=== PATIENT | female | born 1955 | race Caucasian/White ===

== ENCOUNTER → 2017-03-02 | Day surgery (SDC) | payer MEDICARE ==
[~2017-03-02] VITALS: Ht 152.4 cm; Wt 53.0 kg
[~2017-03-02] MED LIST: *MEPERIDINE 25 MG INJ VIAL PERIprocedural Use ONLY ONE; *ONDANSETRON 4 MG VIAL PERIprocedural Use ONLY ONE; *RESP: ALBUTEROL 2.5 MG/3 ML NEB (PRN) PERIprocedural Use ONLY NEB ONE; *morphine SULFATE 8 MG/ML PERIprocedure ONLY ONE; ALPR0.25 PO; BUPIVACAINE/EPINEPHRINE 0.5% PF 30 ML VIAL ONE; CHLORHEXIDINE GLUCONATE 2 % 1 PACK (2 CLOTHS) TOPICAL PRN; CLOPIDOGREL 75 MG TAB PO ONE; CLOPIDOGREL 75 MG TAB PO SCH; DO NOT ADM ANY ANTICOAGULANT DRUGS PRN; FAMOTIDINE 20 MG/2 ML VIAL ONE; HEPARIN SODIUM - IV 10,000 UNITS/10 ML VIAL ONE; INSULIN HUMAN REGULAR 1,000 UNITS/10 ML VIAL SQ PRN; IOHEXOL 300 MG/ML 50 ML BTL (for RAD DIAG) OTHER ONE; LACTATED RINGER'S 1000 ML IV PRN; LEVO50TA4 PO; METOPROLOL TARTRATE 25 MG TAB PO PRN; MIDAZOLAM HCL 2 MG/2 ML VIAL IV ONE; MIDAZOLAM HCL 2 MG/2 ML VIAL ONE; MIRT45TA PO; MONT10TA4 PO; NEOSTIGMINE 3 MG/3 ML SYR IV ONE; ONDANSETRON HCL 4 MG/2 ML VIAL IV PUSH ONE; PHENYLEPH/NS 1000 MCG/10 ML SYR IV ONE; POVIDONE IODINE 5% (ANTISEPSIS KIT) 4 APPLICATIONS EACH NARE PRN; PROPOFOL 200 MG/20 ML AMP IV ONE; SODIUM CHLORID 0.9% 500 ML IV PRN; TRAM50TA PO
[2017-03-02 10:33] VITALS: BP 106/79; PULSE 87; RESP 18; TEMP 97.9; O2SAT 96
[2017-03-02 10:53] LABS: AUTOMATED NEUTROPHIL # 5.5 TH/MM3 (1.8-7.7); BASOPHIL % 0.5 % (0.0-2.0); EOSINOPHIL # 0.1 TH/MM3 (0-0.4); EOSINOPHIL % 0.9 % (0.0-4.0); HEMATOCRIT 46.1 % (35.0-46.0); HEMO FLAGS DIFF FINAL; LYMPH % 29.5 % (9.0-44.0); LYMPHOCYTE # 2.6 TH/MM3 (1.0-4.8); MEAN CELL VOLUME 95.8 FL (80.0-100.0); MEAN CORPUSCULAR HEMOGLOBIN 32.2 PG (27.0-34.0); MEAN CORPUSCULAR HGB CONC 33.6 % (32.0-36.0); MONO % 7.1 % (0.0-8.0); PLATELET COUNT 219 TH/MM3 (150-450); RED BLOOD COUNT 4.81 MIL/MM3 (4.00-5.30); RED CELL DISTRIBUTION WIDTH 14.9 % (11.6-17.2); WHITE BLOOD COUNT 8.9 TH/MM3 (4.0-11.0)
--- NOTE | 2017-03-02 11:14 | PD.VS.PN ---
Pre-operative Note Pre-operative diagnosis: PAD, L LE pain Planned procedure: L LE angiogram, iliac angiogram, possible CONTINUOUS IMPROVEMENT BLACK BELT/stent Interval History: The patient is anxious about surgery but otherwise ready to proceed. Persistent L thigh pain. Labs: Laboratory Results Test 03/02/17 10:28 White Blood Count 8.9 TH/MM3 (4.0-11.0) Red Blood Count 4.81 MIL/MM3 (4.00-5.30) Hemoglobin 15.5 GM/DL (11.6-15.3) Hematocrit 46.1 % (35.0-46.0) Mean Corpuscular Volume 95.8 FL (80.0-100.0) Mean Corpuscular Hemoglobin 32.2 PG (27.0-34.0) Mean Corpuscular Hemoglobin 33.6 % Concent (32.0-36.0) Red Cell Distribution Width 14.9 % (11.6-17.2) Platelet Count 219 TH/MM3 (150-450) Mean Platelet Volume 8.0 FL (7.0-11.0) Blood: none needed Imaging: will make in OR Orders: DONOVAN Robertson 1g IV OCTOR Post-operative destination: PACU, then home today Operative site marked: Yes Consent: Informed consent has been obtained from Tiffanie Martinez. I have explained the procedure in detail and discussed the risks, benefits, and potential complications. All questions have been answered. No interval change that would preclude proceeding to OR. Moi Arora MD March 02, 2017 11:13
[2017-03-02 11:39] LABS: BICARBONATE 24.6 MEQ/L (21.0-32.0)
[2017-03-02 11:40] LABS: POTASSIUM 4.3 MEQ/L (3.5-5.1)
--- NOTE | 2017-03-02 13:22 | HHI.PR ---
Immediate Post Op Note Procedure Date: March 02, 2017 Pre Op Diagnosis: PAD, L LE Post Op Diagnosis: PAD, L LE Surgeon: Moi Arora Retail Loan Officer(s): Ishmael Wheeler Procedure: 1. U/S guided access to L CHILD ADVOCATE 2. Aortogram 3. 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
[2017-03-02 17:00] VITALS: BP 101/63; PULSE 82; RESP 16; TEMP 97.7; O2SAT 93
--- NOTE | 2017-03-03 05:22 | MP ---
cc: MOI ARORA MD DATE OF SURGERY 03/02/2017 PREOPERATIVE DIAGNOSIS Peripheral arterial occlusive disease, left lower extremity. POSTOPERATIVE DIAGNOSIS Peripheral arterial occlusive disease, left lower extremity. PROCEDURE 1. Ultrasound guided access to the left common femoral artery. 2. Aortogram iliac angiogram. 3. Angioplasty instead of left common iliac artery. 4. Left common femoral AngioSeal. ATTENDING SURGEON Moi Arora MD AEROGRAPHER SURGEON Ishmael Wheeler MD ANESTHESIA General. INDICATIONS FOR PROCEDURE Ms. Martinez is 62-year-old lady who has left lower extremity peripheral occlusive disease and iliac stenosis by CT scan. She was taken to the operating room for angiographic evaluation and potential endovascular treatment. There was no prior cath or invasive imaging available for my review. DESCRIPTION OF PROCEDURE Informed consent was obtained from the patient. She was taken to the operating room and placed supine on the operating room table. An appropriate time-out was taken to insure the patient's identify, the operative site and planned procedure. The administration of 1 gram of Kefzol was initiated prior to stent implantation and will be discontinued after a single preoperative dose. Everyone in the room agreed with the time-out and we proceeded. Her bilateral groins were prepped and draped and, under ultrasonic guidance, the left common femoral artery was accessed with a 21-gauge micropuncture needle. This was exchanged using Seldinger technique through which a 0.025 Glidewire was introduced. The micropuncture sheath was exchanged for a 4-[place]or[place] sheath and aortogram was obtained. The patient was systemically heparinized with 5000 units of IV heparin. The 4-[place]oran sheath was removed, the 6-Comoran sheath was introduced an a 6 x 40 balloon was used to angioplasty the common iliac artery. At the completion the angiogram showed a dissection and this was treated with a 7 x 40 stent which was post-dilated to 6 mm. At the completion the angiogram showed excellent result without any recoil or extravasation. The wire, catheter and sheath were removed. The groin was closed with AngioSeal. There were no complications. I was present and scrubbed for the entire procedure. INTERPRETATION IMAGES The patient has a patent terminal aorta, patent common iliac arteries. The left common iliac artery has a high-grade near-occlusive stenosis. The external iliac artery and the hypogastric artery are patent. After angioplasty there is a dissection that was treated with a stent. After stenting with post-dilatation, there is no further evidence of dissection or flow-limiting lesion. MD LUIS ALFREDO Burgos/SSB /1:28 PM /5:04 AM
== END | disposition home or self-care (01) ==
LOC: HSDC 09:54
PROVIDERS: ATTEND Surgery
DX: I73.9 Peripheral vascular disease, unspecified (principal)
CPT/HCPCS: 00880; 37221; 75710; 80048; 85025; 86850; 86900; 86901; C1725; C1769; C1876; J1644; J2175; J2270; J2370; J2405; J2710; J3010; J7120; J7613; Q9967; J2250